=== PATIENT | female | born 1965 | race Hispanic/Latino ===

== ENCOUNTER 2020-06-12 01:19 | Observation (INO) | payer OTHER ==
[2020-06-12] MEDS ORDERED: NITROGLYCERIN 2% OINT 1 GM TP ONE ×2 (01:49→04:26)
[2020-06-12] MEDS ORDERED: ASPIRIN 325 MG TAB PO ONE (01:49)
[2020-06-12] MEDS ORDERED: ONDANSETRON 4 MG/2 ML INJ IV ONE (01:49)
[2020-06-12] MEDS ORDERED: fentaNYL 100 MCG/2 ML INJ IV ONE (01:49)
--- NOTE | 2020-06-12 01:56 | Emergency Department Report ---
HPI - General Chief Complaint: Chest Pain Time Seen by Provider: 06/12/20 01:38 - [facility] HPI: Room 1 The patient is a 55-year-old female present with a chief complaint of chest pain. Patient states this evening she developed aching chest pain that is been intermittent in nature and associated with nausea without vomiting. Patient denies shortness of breath or diaphoresis. The patient is currently a patient at [facility] and was sent over for evaluation of her chest pain. 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 denies: vomiting Musculoskeletal: back pain Physical Exam - Physical Exam Vital Signs: Vital Signs 06/12/20 01:40 Temperature 97.8 F Pulse Rate 88 Respiratory 18 Rate Blood Pressure 120/74 [Right] O2 Sat by Pulse 94 Oximetry Physical Exam: GENERAL: The patient is well-developed well-nourished female lying on stretcher not appearing to be in acute distress. [] HEENT: Normocephalic. Atraumatic. Extraocular motions are intact. Patient has moist mucous membranes. NECK: Supple. Trachea midline CHEST/LUNGS: Clear to auscultation. There is no respiratory distress noted. HEART/CARDIOVASCULAR: Regular. There is no tachycardia. There is no gallop rub or murmur. ABDOMEN: Abdomen is soft, nontender. Patient has normal bowel sounds. There is no abdominal distention. SKIN: There is no rash. There is no edema. There is no diaphoresis. NEURO: The patient is awake, alert, and oriented. The patient is cooperative. The patient has normal speech MUSCULOSKELETAL: There is no evidence of acute injury. ED Course Vital Signs 06/12/20 01:40 Temperature 97.8 F Pulse Rate 88 Respiratory 18 Rate Blood Pressure 120/74 [Right] O2 Sat by Pulse 94 Oximetry ED Medical Decision Making - Lab Data Result diagrams: 06/12/20 02:21 06/12/20 02:21 Laboratory Tests 06/12/20 06/12/20 02:21 02:21 WBC 7.4 RBC 4.20 Hgb 12.8 Hct 38.0 MCV 91 MCH 31 MCHC 34 RDW 13.5 Plt Count 284 Lymph % (Auto) 23.8 [place] % (Auto) 7.2 Eos % (Auto) 2.4 Baso % (Auto) 0.8 Lymph # 1.8 [place] # 0.5 Eos # 0.2 Baso # 0.1 Seg Neutrophils % 65.8 Seg Neutrophils # 4.9 Sodium 139 Potassium 3.8 Chloride 103.7 Carbon Dioxide 22 Anion Gap 17 BUN 12 Creatinine 0.6 Estimated GFR > 60 BUN/Creatinine Ratio 20 Glucose 102 H Calcium 9.1 Total Creatine Kinase 51 CK-MB (CK-2) < 1.0 CK-MB (CK-2) Rel Index 1.9 Troponin T < 0.010 - EKG Data -: EKG Interpreted by Me EKG shows normal: sinus rhythm Rate: normal - EKG Data When compared to previous EKG there are: previous EKG unavailable Interpretation: other (No ischemic changes seen) - Radiology Data Radiology results: report reviewed (Chest x-ray), image reviewed (Chest x-ray) interpreted by me: Chest x-ray-no focal infiltrates, no pneumothorax Findings [facility] [address] [place] [address] XRay Report Signed Patient: SHARON BROOKS MR#: [id number] : 1965 Acct:[id number] Age/Sex: 55 / F ADM Date: 06/12/20 Loc: ED Attending Dr: Ordering Physician: LILIANA RODRIGUEZ MD Date of Service: 06/12/20 Procedure(s): XR chest 1V ap Accession Number(s): [id number] cc: LILIANA RODRIGUEZ MD Fluoro Time In Min utes: CHEST 1 VIEW INDICATION: chest pain. COMPARISON: None FINDINGS: Support devices: None. Heart: Within normal limits. Lungs/Pleura: No acute air space or interstitial disease. Additional findings: None. IMPRESSION: No acute abnormality. Signer Name: Patrice Ferguson MD Signed: 06/12/2020 2:43 AM W orkstation Name: [id number] Transcribed By: ES Dictated By: Patrice Ferguson MD Electronically Authenticated By: Patrice Ferguson MD Signed Date/Time: 06/12/20242 DD/ 2 TD/TT: - Differential Diagnosis ACS, pericarditis, GERD Critical care attestation.: If time is entered above; I have spent that time in minutes in the direct care of this critically ill patient, excluding procedure time. ED Disposition Clinical Impression: Chest pain Disposition: DC-09 OP ADMIT IP TO THIS HOSP Is pt being admited?: Yes Does the pt Need Aspirin: Yes Condition: Fair Instructions: Chest Pain (ED) Time of Disposition: 03:30 (Hospitalist paged (Dr Fountain))
[2020-06-12 02:47] LABS: Basophils # (Auto) 0.1 K/mm3 (0.0-0.1); Basophils % (Auto) 0.8 % (0.0-1.8); Eosinophils # (Auto) 0.2 K/mm3 (0.0-0.4); Eosinophils % (Auto) 2.4 % (0.0-4.3); Hemoglobin 12.8 gm/dl (10.1-14.3); Lymphocytes # (Auto) 1.8 K/mm3 (1.2-5.4); Lymphocytes % (Auto) 23.8 % (13.4-35.0); Mean Corpuscular HGB Conc 34 % (30-34); Mean Corpuscular Volume 91 fl (79-97); Monocytes # (Auto) 0.5 K/mm3 (0.0-0.8); Monocytes % (Auto) 7.2 % (0.0-7.3); Platelet Count 284 K/mm3 (140-440); Red Cell Distribution Width 13.5 % (13.2-15.2)
--- NOTE | 2020-06-12 02:47 | XRay Report ---
CHEST 1 VIEW INDICATION: chest pain. COMPARISON: None FINDINGS: Support devices: None. Heart: Within normal limits. Lungs/Pleura: No acute air space or interstitial disease. Additional findings: None. IMPRESSION: No acute abnormality. Signer Name: Patrice Ferguson MD Signed: 06/12/2020 2:43 AM Workstation Name: [id number]
[2020-06-12 02:54] LABS: Blood Urea Nitrogen 12 mg/dL (7-17); Calcium 9.1 mg/dL (8.4-10.2); Hemolysis Index 10
[2020-06-12 02:55] LABS: BUN/Creatinine Ratio 20; Creatine Kinase MB < 1.0 ng/mL (0.0-4.0)
[2020-06-12] MEDS ORDERED: ONDANSETRON 4 MG/2 ML INJ ONE (04:26)
[2020-06-12] MEDS ORDERED: ASPIRIN 325 MG TAB ONE (04:26)
[2020-06-12] MEDS ORDERED: fentaNYL 100 MCG/2 ML INJ ONE (04:27)
[2020-06-12] MEDS ORDERED: NITROGLYCERIN 0.4 MG TAB SUBL SL PRN (04:32)
[2020-06-12] MEDS ORDERED: MORPHINE 2 MG/1 ML INJ IV PRN (04:33)
[2020-06-12] MEDS ORDERED: ONDANSETRON 4 MG/2 ML INJ IV PRN (04:33)
[2020-06-12] MEDS ORDERED: ACETAMINOPHEN 325 MG TAB PO PRN (04:33)
--- NOTE | 2020-06-12 05:23 | History and Physical Report ---
History of Present Illness Date of examination: 06/12/20 Date of admission: 06/12/20 03:35 Chief complaint: CHEST PAIN History of present illness: 55 year old female sent over from [facility] because of pressure like chest pain that started yesterday evening and associated with nausea but no vomiting . There is no history of shortness of breath, fever, chills, cough or bodyache. Patient had a document from the psychiatric facility from where she came showing 1014 form that is an involuntary confinement extension. Past History Past Medical History: CAD, COPD, DVT, stroke Past Surgical History: Other (CARDIAC STENT) Social history: no significant social history Family history: no significant family history Medications and Allergies Allergies Allergy/AdvReac Type Severity Reaction Status Date / Time No Known Allergies Allergy Verified 06/12/20 04:41 Home Medications Medication Instructions Recorded Confirmed Last Taken Type Albuterol Sulfate [Proair 90 mcg IH Q8H PRN 06/12/20 06/12/20 Unknown History Respiclick] Aspirin [Aspirin BABY CHEW TAB] 81 mg PO QDAY 06/12/20 06/12/20 Unknown History Atorvastatin Calcium [Lipitor] 80 mg PO DAILY 06/12/20 06/12/20 Unknown History Cyclobenzaprine [Flexeril] 5 mg PO TID PRN 06/12/20 06/12/20 Unknown History FLUoxetine [PROzac] 20 mg PO QDAY 06/12/20 06/12/20 Unknown History Metoprolol Succinate [Toprol Xl] 25 mg PO DAILY 06/12/20 06/12/20 Unknown History amLODIPine [Norvasc] 5 mg PO DAILY 06/12/20 06/12/20 Unknown History traMADoL [Ultram] 50 mg PO Q6HR PRN 06/12/20 06/12/20 Unknown History Active Meds: Active Medications Acetaminophen (Tylenol) 650 mg PO Q4H PRN PRN Reason: Headache Aspirin (Aspirin) 325 mg PO QDAY [facility] Heparin Sodium (Porcine) (Heparin) 5,000 unit SUB-Q Q12HR [facility] Morphine Sulfate (Morphine) 2 mg IV Q4H PRN PRN Reason: Pain, Moderate (4-6) Nitroglycerin (Nitro-Bid 2%) 0.5 inch TP QIDNTG [facility]; Protocol Nitroglycerin (Nitrostat) 0.4 mg SL .Q5MIN PRN PRN Reason: Chest Pain Ondansetron HCl (Zofran) 4 mg IV Q8H PRN PRN Reason: Nausea And Vomiting Review of Systems Constitutional: no weight gain, no fever, no chills, no sweats, no fatigue, no weakness, no malaise Eyes: bilateral: other (NO BILATERAL EYE SYMPTOM) Ears, nose, mouth and throat: no ear pain, no ear discharge, no tinnitis, no decreased hearing, no nose pain, no nasal congestion, no dental pain, no mouth pain, no dysphagia Breasts: deferred Cardiovascular: chest pain, no palpitations, no rapid/irregular heart beat, no syncope, no lightheadedness, no shortness of breath Respiratory: no cough, no excessive sputum, no hemoptysis, no shortness of breath, no congestion, no wheezing Gastrointestinal: nausea, no abdominal pain, no vomiting, no diarrhea, no constipation, no change in bowel habits, no hematemesis, no coffee ground emesis Genitourinary Female: no flank pain Rectal: no pain Musculoskeletal: no neck stiffness, no neck pain, no low back pain, no muscle we akness, no muscle cramps Integumentary: no rash, no pruritis, no redness, no sores Neurological: no paralysis, no weakness, no parathesias, no numbness, no tingling, no seizures, no syncope, no tremors, no ataxia, no headaches, no convulsions, no aphasia, no confusion Psychiatric: no anxiety, no insomnia, no hypersomnia, no change in appetite, no confusion Endocrine: no cold intolerance, no heat intolerance Hematologic/Lymphatic: no easy bruising, no easy bleeding Allergic/Immunologic: no urticaria Exam - Constitutional Vitals: Temp Pulse Resp BP Pulse Ox 97.8 F 67 20 116/57 99 06/12/20 01:40 06/12/20 04:41 06/12/20 04:42 06/12/20 04:41 06/12/20 04:00 General appearance: Present: no acute distress - EENT Eyes: Present: PERRL, EOM intact ENT: hearing intact, clear oral mucosa, dentition normal - Neck Neck: Present: supple, normal ROM - Respiratory Respiratory effort: normal - Cardiovascular Rhythm: regular Heart Sounds: Present: S1 & S2. Absent: gallop, systolic murmur, diastolic murmur, click - Extremities Extremities: no ischemia, No edema Peripheral Pulses: within normal limits - Abdominal General gastrointestinal: Present: soft, non-tender, non-distended. Absent: tender, distended, rigid, hepatomegaly, splenomegaly, mass Female genitourinary: Present: deferred - Rectal Rectal Exam: deferred - Integumentary Integumentary: Present: clear, warm, dry. Absent: erythema, rash, clammy - Musculoskeletal Musculoskeletal: strength equal bilaterally - Psychiatric Psychiatric: appropriate mood/affect HEART Score - HEART Score Age: 45-65 Risk factors: 1-2 risk factors Troponin: Troponin T < 0.010 ng/mL (0.00-0.029) 06/12/20 02:21 Troponin: < normal limit - Critical Actions Critical Actions: 0-3 pts:0.9-1.7%risk of adverse cardiac event.Candidate for discharge Results - Labs CBC & Chem 7: 06/12/20 02:21 06/12/20 02:21 Labs: Laboratory Last Values WBC 7.4 K/mm3 (4.5-11.0) 06/12/20 02:21 RBC 4.20 M/mm3 (3.65-5.03) 06/12/20 02:21 Hgb 12.8 gm/dl (10.1-14.3) 06/12/20 02:21 Hct 38.0 % (30.3-42.9) 06/12/20 02:21 MCV 91 fl (79-97) 06/12/20 02:21 MCH 31 pg (28-32) 06/12/20 02:21 MCHC 34 % (30-34) 06/12/20 02:21 RDW 13.5 % (13.2-15.2) 06/12/20 02:21 Plt Count 284 K/mm3 (140-440) 06/12/20 02:21 Lymph % (Auto) 23.8 % (13.4-35.0) 06/12/20 02:21 [place] % (Auto) 7.2 % (0.0-7.3) 06/12/20 02:21 Eos % (Auto) 2.4 % (0.0-4.3) 06/12/20 02:21 Baso % (Auto) 0.8 % (0.0-1.8) 06/12/20 02:21 Lymph # 1.8 K/mm3 (1.2-5.4) 06/12/20 02:21 [place] # 0.5 K/mm3 (0.0-0.8) 06/12/20 02:21 Eos # 0.2 K/mm3 (0.0-0.4) 06/12/20 02:21 Baso # 0.1 K/mm3 (0.0-0.1) 06/12/20 02:21 Seg Neutrophils % 65.8 % (40.0-70.0) 06/12/20 02:21 Seg Neutrophils # 4.9 K/mm3 (1.8-7.7) 06/12/20 02:21 Sodium 139 mmol/L (137-145) 06/12/20 02:21 Potassium 3.8 mmol/L (3.6-5.0) 06/12/20 02:21 Chloride 103.7 mmol/L (98-107) 06/12/20 02:21 Carbon Dioxide 22 mmol/L (22-30) 06/12/20 02:21 Anion Gap 17 mmol/L 06/12/20 02:21 BUN 12 mg/dL (7-17) 06/12/20 02:21 Creatinine 0.6 mg/dL (0.6-1.2) 06/12/20 02:21 Estimated GFR > 60 ml/min 06/12/20 02:21 BUN/Creatinine Ratio 20 % 06/12/20 02:21 Glucose 102 mg/dL (65-100) H 06/12/20 02:21 Calcium 9.1 mg/dL (8.4-10.2) 06/12/20 02:21 Total Creatine Kinase 51 units/L (30-135) 06/12/20 02:21 CK-MB (CK-2) < 1.0 ng/mL (0.0-4.0) 06/12/20 02:21 CK-MB (CK-2) Rel Index 1.9 (0-4) 06/12/20 02:21 Troponin T < 0.010 ng/mL (0.00-0.029) 06/12/20 02:21 Hernández/IV: IV Catheter Type [Right INT / Saline Lock Antecubital] Assessment and Plan - Patient Problems (1) Chest pain Current Visit: Yes Status: Acute Plan to address problem: 1. TELEMETRY OBSERVATION 2. SERIAL CARDIAC ENZYME 3. NPO 4 LEXISCAN STRESS TEST 5. NITROGLYCERIN (PASTE AND SUBLINGUAL TYPES) 6. I.V MORPHINE FOR PAIN 7. I.V ZOFRAN FOR NAUSEA AND VOMITING 8. OXYGEN BY NASAL CANNULA 9. PSYCHIATRIC/ MENTAL HEALTH CONSULT TO ADDRESS THE ISSUE OF INVOLUNTARY CONFINEMENT
[2020-06-12] MEDS ORDERED: NON-FORMULARY EACH (Albuterol Sulfate [Proair Respiclick] 90 MCG) IH PRN (07:33)
[2020-06-12] MEDS ORDERED: traMADol 50 MG TAB PO PRN (07:33)
[2020-06-12] MEDS ORDERED: REGADENOSON 0.4 MG/5 ML INJ IV ONE ×2 (08:33→08:37)
[2020-06-12 09:12] LABS: Creatine Kinase MB < 1.0 ng/mL (0.0-4.0)
[2020-06-12] MEDS ORDERED: FLUoxetine 20 MG CAP PO SCH (10:00)
[2020-06-12] MEDS ORDERED: HEPARIN 5,000 UNIT/1 ML VIAL SUB-Q SCH (10:00)
[2020-06-12] MEDS ORDERED: ASPIRIN 325 MG TAB PO SCH (10:00)
[2020-06-12] MEDS ORDERED: METOPROLOL SUCCINATE XL 25 MG TAB PO SCH (10:00)
[2020-06-12] MEDS ORDERED: amLODIPine 5 MG TAB PO SCH (10:00)
[2020-06-12] MEDS ORDERED: NON-FORMULARY EACH (Atorvastatin Calcium [Lipitor] 80 MG) PO SCH (10:00)
[2020-06-12] MEDS: NITROGLYCERIN 2% OINT 1 GM TP SCH ×3 (11:42→18:41)
[2020-06-12] MEDS ORDERED: ALBUTEROL 2.5 MG/3 ML NEBU IH PRN (12:00)
[2020-06-12 12:49] LABS: Creatine Kinase MB < 1.0 ng/mL (0.0-4.0)
--- NOTE | 2020-06-12 12:57 | Event Note ---
Date: 06/12/20 Detailed cardiology consultation dictated. S/p neyiscan MPI stress test this AM which was negative. Currently stable cardiac status. Pt may discharge from cardiology standpoint. Recommend pt follow up in our office with Dr. Corey Cowan within 2 weeks ([phone]). Rosie VILLARREAL NP / DR. Corey COWAN
--- NOTE | 2020-06-12 13:02 | Discharge Summary ---
Providers - Providers Date of Admission: 06/12/20 03:35 Attending physician: ELISABETH DAILY MD 06/12/20 04:29 Consult to Mental Health [CONS] Routine Reason For Exam: SUICIDAL IDEATION HISTORY 06/12/20 07:35 Consult to Physician [CONS] Routine Comment: Consulting Provider: KAREN YIP Physician Instructions: Reason For Exam: chest pain Primary care physician: SHARMAINE KHAN MD Hospitalization Reason for admission: Chest pain Condition: Fair Hospital course: 55 year old female sent over from [facility] because of pressure like chest pain that started yesterday evening and associated with nausea but no vomiting . There is no history of shortness of breath, fever, chills, cough or bodyache. Patient had a document from the psychiatric facility from where she came showing 1014 form that is an involuntary confinement extension. Patient on admission was risk stratified and underwent stress test which was negative for acute ischemic changes. She does not report any chest pain at this time she is tolerating her diet and is medically cleared for discharge back to [facility]. Atypical chest pain secondary to costochondritis Suicidal ideation Nausea now resolved Disposition: DC/TX-65 PSY HOSP/PSY UNIT Time spent for discharge: 35-minute Core Measure Documentation - Palliative Care Palliative Care/ Comfort Measures: Not Applicable - Core Measures Any of the following diagnoses?: none Exam - Physical Exam Narrative exam: VITAL SIGNS: Reviewed. GENERAL: The patient appears normally developed, Vital signs as documented. HEAD: No signs of head trauma. EYES: Pupils are equal. Extraocular motions intact. EARS: Hearing grossly intact. MOUTH: Oropharynx is normal. NECK: No adenopathy, no JVD. CHEST: Chest with clear breath sounds bilaterally. No wheezes, rales, or rhonchi. CARDIAC: Regular rate and rhythm. S1 and S2, without murmurs, gallops, or rubs. VASCULAR: No Edema. Peripheral pulses normal and equal in all extremities. ABDOMEN: Soft, non tender and non distended. No rebound or guarding, and no masses palpated. Bowel Sounds normal. MUSCULOSKELETAL: Good range of motion of all major joints. Extremities without clubbing, cyanosis or edema. NEUROLOGIC EXAM: Alert and oriented x 3 No focal sensory or strength deficits. Speech normal. Follows commands. PSYCHIATRIC: Mood normal. SKIN: detail exam as documented in skin assessment - Constitutional Vitals: Temp Pulse Resp BP Pulse Ox 98.9 F 71 17 133/80 96 06/12/20 11:10 06/12/20 11:42 06/12/20 11:10 06/12/20 11:42 06/12/20 11:10 Plan Activity: advance as tolerated, fall precautions Diet: low fat Special Instructions: record daily weights, record daily BP diary Follow up with: SHARMAINE KHAN MD [Primary Care Provider] - 3-5 Days
[2020-06-12] MEDS ORDERED: CYCLOBENZAPRINE 10 MG TAB PO PRN (14:00)
--- NOTE | 2020-06-12 14:17 | Consultation ---
REFERRING PHYSICIAN: Hospitalist service. REASON FOR CONSULTATION: Advice and opinion regarding chest pain. HISTORY OF PRESENT ILLNESS: The patient is a 55-year-old female sent to [facility] from [facility] for chest pain started yesterday, questionable nausea, but no vomiting. She is seen in the stress lab. She is in involuntary confinement due to her psychiatric history. She at this time has no symptoms. No chest pain, shortness of breath, syncope or presyncope. The patient states she has no symptoms since yesterday, feels much better. PAST MEDICAL HISTORY: Apparently, there is a history of heart disease, more specifically coronary artery disease and PCI, COPD, questionable history of CVA. SOCIAL HISTORY: Denies smoking or drugs. FAMILY HISTORY: No family history of premature heart disease. ALLERGIES: No known drug, food, or environmental allergies. REVIEW OF SYSTEMS: As per HPI. MEDICATIONS: Inpatient and outpatient medications reviewed. PHYSICAL EXAMINATION: VITAL SIGNS: Blood pressure is 123/70. She is afebrile. Tele reveals sinus rhythm in the 60s. No dysrhythmias. GENERAL: This is a young female, in no apparent distress, alert and oriented x 3. HEENT: Sclerae are anicteric. PERRLA. NECK: Supple, no masses, no JVD. CHEST: Clear to auscultation bilaterally. Good air movement. CARDIOVASCULAR: Regular rhythm, S1, S2. ABDOMEN: Soft, nontender, nondistended. Normoactive bowel sounds in 4 quadrants. No mass or bruits. EXTREMITIES: No cyanosis, clubbing, or edema. Good peripheral pulses. SKIN: Intact. No rashes. DATA: ECG is nonacute sinus rhythm, normal axis. Cardiac enzymes negative x 2. CBC and CMP unremarkable. ASSESSMENT AND PLAN: In summary, the patient is a pleasant 55-year-old female. Chest pain, with typical and atypical features with a history of PCI. Continue aspirin. Chest pain free. Stress test this a.m. revealed no evidence of ischemia or prior infarction, normal LV function. Continue full-dose aspirin, statin therapy, primary and secondary prevention measures. She is chest pain free at this point. Other treatment as per primary team. No changes from a cardiac perspective at this point. The patient remains asymptomatic. JOB# [id number] SBM/NTS
--- NOTE | 2020-06-12 15:28 | Consultation ---
History of Present Illness - Reason for Consult Consult date: 06/12/20 Reason for consult: hx of Si - History of Present Psychiatric Illness Michelle Estrella is a 55y/o female patient who presented to the ER for chest pain. During my interview with the patient she is lying in bed awake. She is a/o x 3. She is calm and cooperative. She makes good eye contact. The patient denies SI/HI. She states, "I never was. I don't know who told you that." She says "I've had one attempt awhile ago." The patient denies hallucinations of any kind. She says her mood is "alright." The patient says she has a history of "depression and anxiety." She says she takes "prozac." She denies any illicit drug use, alcohol or nicotine. PAST PSYCHIATRIC HISTORY: Diagnoses: "depression and anxiety" Suicide attempts or Self-harm behavior: Yes Prior psychiatric hospitalizations: Yes Substance Abuse history: Denies Previous psychiatric medications tried: "prozac" Outpatient treatment: yes PAST MEDICAL HISTORY: None reported Family Psychiatric History: None reported or documented SOCIAL HISTORY Marital Status: Living Arrangements: with family Employment Status: Employed Access to guns/weapons: Denies Education: High school History of Abuse: Denies Legal History: Denies REVIEW OF SYSTEMS Constitutional: Negative for weight loss ENT: Negative for stridor Respiratory: Negative for cough or hemoptysis All other systems reviewed and are negative MSE Appearance: Wearing appropriate clothing. Behavior: calm and cooperative Mood: "okay" Affect: Congruent with stated mood Thought Process: Goal directed Speech: normal tone and pace Thought Content Suicidal: Denies Homicidal: Denies Hallucinations: Denies Delusions: none elicited Consciousness: alert. Cognition/Memory: Normal Insight/Judgment: Normal Diagnoses: Major Depressive Disorder by history Generalized Anxiety Disorder by history Treatment Plan Continue home medications previously prescribed by outpatient psychiatrist Sitter: Defer to primary Medical: Per primary Disposition: Do not recommend acute inpatient psychiatric treatment Will sign off. Thank you for this consult. Medications and Allergies Allergies Allergy/AdvReac Type Severity Reaction Status Date / Time No Known Allergies Allergy Verified 06/12/20 04:41 Home Medications Medication Instructions Recorded Confirmed Last Taken Type Albuterol Sulfate [Proair 90 mcg IH Q8H PRN 06/12/20 06/12/20 Unknown History Respiclick] Aspirin [Aspirin BABY CHEW TAB] 81 mg PO QDAY 06/12/20 06/12/20 Unknown History Atorvastatin Calcium [Lipitor] 80 mg PO DAILY 06/12/20 06/12/20 Unknown History Cyclobenzaprine [Flexeril 10 MG 5 mg PO TID PRN 06/12/20 06/12/20 Unknown History TAB] FLUoxetine [PROzac] 20 mg PO QDAY 06/12/20 06/12/20 Unknown History Metoprolol Succinate [Toprol Xl] 25 mg PO DAILY 06/12/20 06/12/20 Unknown History amLODIPine 5 mg PO DAILY 06/12/20 06/12/20 Unknown History traMADoL [Ultram 50 MG tab] 50 mg PO Q6HR PRN 06/12/20 06/12/20 Unknown History Active Meds: Active Medications Acetaminophen (Tylenol) 650 mg PO Q4H PRN PRN Reason: Headache Albuterol (Proventil) 2.5 mg IH Q4HRT PRN PRN Reason: Shortness Of Breath Amlodipine Besylate (Amlodipine) 5 mg PO DAILY [facility] Last Admin: 06/12/20 11:40 Dose: 5 mg Documented by: Aspirin (Aspirin) 325 mg PO QDAY [facility] Last Admin: 06/12/20 11:40 Dose: 325 mg Documented by: Atorvastatin Calcium (Lipitor) 80 mg PO QHS [facility] Cyclobenzaprine HCl (Flexeril) 5 mg PO TID PRN PRN Reason: Muscle Spasm Fluoxetine HCl (Prozac) 20 mg PO QDAY [facility] Last Admin: 06/12/20 11:41 Dose: 20 mg Documented by: Heparin Sodium (Porcine) (Heparin) 5,000 unit SUB-Q Q12HR [facility] Last Admin: 06/12/20 11:41 Dose: 5,000 unit Documented by: Metoprolol Succinate (Metoprolol Xl) 25 mg PO DAILY [facility] Last Admin: 06/12/20 11:41 Dose: 25 mg Documented by: Morphine Sulfate (Morphine) 2 mg IV Q4H PRN PRN Reason: Pain, Moderate (4-6) Nitroglycerin (Nitro-Bid 2%) 0.5 inch TP QIDNTG [facility]; Protocol Last Admin: 06/12/20 11:42 Dose: 0.5 inch Documented by: Nitroglycerin (Nitrostat) 0.4 mg SL .Q5MIN PRN PRN Reason: Chest Pain Ondansetron HCl (Zofran) 4 mg IV Q8H PRN PRN Reason: Nausea And Vomiting Mental Status Exam - Vital signs Last Vital Signs Temp 98.9 F 06/12/20 11:10 Pulse 71 06/12/20 11:42 Resp 17 06/12/20 11:10 BP 133/80 06/12/20 11:42 Pulse Ox 96 06/12/20 11:10 Results Result Diagrams: 06/12/20 02:21 06/12/20 02:21 Abnormal lab results 06/12/20 Range/Units 02:21 Glucose 102 H (65-100) mg/dL All other labs normal.
--- NOTE | 2020-06-12 17:26 | Treadmill Report ---
NUCLEAR PERFUSION SCAN REFERRING PHYSICIAN: Dr. Fountain PROTOCOL: The patient was assessed in postoperative state, given 10 mCi of technetium 99m at rest. The patient underwent rest imaging. The patient underwent Lexiscan stress test per standard protocol. At peak stress, patient was given 26 mCi of technetium 99m. Shortly thereafter, the patient underwent stress imaging. Raw imaging reveals mild GI artifact, no significant motion effect. SPECT imaging examined carefully in horizontal long axis, vertical long axis, short axis views. There is normal homogenous uptake of radioisotope in all four segments. No evidence of significant fixed or reversible perfusion defect suggestive of prior infarction or ischemia. Gated wall motion reveals normal systolic thickening, calculated ejection fraction 84%. CONCLUSIONS: 1. Normal myocardial perfusion scan without evidence of active ischemia or prior infarction. 2. Normal left ventricular systolic performance without evidence of transient ischemic dilatation or stress-induced segmental wall motion abnormalities. JOB# [id number] [facility]/NTS
[2020-06-12 19:37] VITALS: BP 97/53
== END 2020-06-12 20:53 ==
LOC: ED 01:19 → 4A 03:35
PROVIDERS: ADMIT Internal Medicine; ATTEND Internal Medicine
DX: R07.89 Other chest pain (principal); I25.10 Atherosclerotic heart disease of native coronary artery without angina pectoris; J44.9 Chronic obstructive pulmonary disease, unspecified; F17.210 Nicotine dependence, cigarettes, uncomplicated; Z86.718 Personal history of other venous thrombosis and embolism; Z95.1 Presence of aortocoronary bypass graft; Z86.73 Personal history of transient ischemic attack (TIA), and cerebral infarction without residual deficits; Z79.82 Long term (current) use of aspirin
CPT/HCPCS: 36415; 71045; 78452; 80048; 82550; 82553; 84484; 85025; 93005; 93017; 96372; 96374; 96375; 99285; A9502; G0378; J1644; J2405; J2785; J3010